=== PATIENT | female | born 1960 | race Caucasian/White ===

== ENCOUNTER 2018-07-23 14:45 | Emergency (ER) | payer BC ==
[~2018-07-23] VITALS: Ht 154.9 cm; Wt 66.7 kg
--- NOTE | 2018-07-23 15:03 | NUR ---
bib daughter from home for severe h/a, pt [id number], pt on monitor, vss, nad noted, pending md rivera
[2018-07-23] MEDS ORDERED: ONDANSETRON 4 MG TAB.RAPDIS PO ONE (15:30)
[2018-07-23 15:37] LABS: BASOPHILS % (AUTO) 0.3 % (0.0-2.0); HEMATOCRIT 44 % (33-45); HEMOGLOBIN 15.2 g/dL (11.5-14.8); LYMPHOCYTES % (AUTO) 6.7 % (20.0-44.0); MEAN CORPUSCULAR HGB CONC 34 g/dl (31.0-36.0); MEAN CORPUSCULAR VOLUME 89 fL (82-100); MONOCYTES # (AUTO) 0.5 /CMM (0.1-1.30); MONOCYTES % (AUTO) 3.5 % (2.0-12.0); NEUTROPHILS # (AUTO) 13.4 /CMM (1.8-8.9); NEUTROPHILS % (AUTO) 89.5 % (43.0-81.0); PLATELET COUNT (AUTO) 189 /CMM (150-450); RED BLOOD CELL COUNT(AUTO) 4.95 MIL/uL (4.0-5.2); WHITE BLOOD COUNT (AUTO) 14.9 K/uL (4.3-11.0)
[2018-07-23 15:47] LABS: CALCIUM, SERUM 9.2 mg/dL (8.5-10.1); CREATININE 0.8 mg/dL (0.6-1.3); POTASSIUM 3.6 mmol/L (3.5-5.1)
[2018-07-23] MEDS ORDERED: ONDANSETRON 4 MG TAB.RAPDIS ONE (15:56)
[2018-07-23] MEDS ORDERED: CT SWABBABLE VALVE TRANS SET 1 EA INFUS.SET MC ONE (16:02)
[2018-07-23] MEDS ORDERED: IV NS 0.9% 250 ML IV ONE (16:02)
[2018-07-23] MEDS ORDERED: IOHEXOL-350 100 ML VIAL IV ONE (16:02)
[2018-07-23] MEDS ORDERED: ACETAMINOPHEN 325 MG TABLET PO ONE (18:30)
[2018-07-23] MEDS ORDERED: ACETAMINOPHEN 325 MG TABLET ONE (18:31)
--- NOTE | 2018-07-23 19:14 | NUR ---
CALLED DR EDDY AT [phone]. I WAS UNABLE TO LEAVE A MESSAGE VOICEMAIL BOX WAS FULL.
--- NOTE | 2018-07-23 19:35 | NUR ---
CALLED DR EDDY AND TRANSERRED CALL TO DR LUO
[2018-07-23 20:13] LABS: APPEARANCE,URINE Clear (CLEAR); BILIRUBIN,URINE SMALL (NEGATIVE); BLOOD, URINE Small Ery/uL (NEGATIVE); COLOR,URINE Yellow (YELLOW); KETONES,URINE >=160 (NEGATIVE); LEUKOCYTE ESTERASE ,URINE Negative (NEGATIVE); NITRITE, URINE Negative (NEGATIVE); PROTEIN,URINE 30 mg/dl (NEGATIVE); UGLUCOSE Negative (NEGATIVE); UROBILINOGEN,URINE 0.2 EU/dL (0.2)
[2018-07-23 20:21] LABS: BACTERIA,URINE None seen /HPF (None Seen); SQUAMOUS EPITHELIAL CELL,UR Rare /HPF (None Seen); WBC,URINE NONE SEEN /HPF (0-3)
--- NOTE | 2018-07-23 21:10 | NUR ---
PT ASSIGNED TO ROOM [facility] AT [facility]. CALL-[phone]
--- NOTE | 2018-07-23 21:13 | NUR ---
CALL REPORT TO [phone]. BED [id number]
--- NOTE | 2018-07-23 21:23 | NUR ---
CALLED [facility]. ETA 60 MIN TRIP# [phone]
[2018-07-23] MEDS ORDERED: MORPHINE SULFATE INJ 2 MG/ML DISP.SYRIN IV ONE (21:30)
[2018-07-23] MEDS ORDERED: ONDANSETRON HCL/PF - ER 4 MG/2 ML VIAL IV ONE (21:30)
[2018-07-23] MEDS ORDERED: ONDANSETRON HCL/PF 4 MG/2 ML VIAL ONE (21:36)
[2018-07-23] MEDS ORDERED: MORPHINE SULFATE INJ 2 MG/ML DISP.SYRIN ONE (21:36)
[2018-07-23 22:09] VITALS: BP 100/53
--- NOTE | 2018-07-23 22:19 | NUR ---
report given to preston lyon for joshua at [facility]
--- NOTE | 2018-07-23 22:59 | NUR ---
pt left via private ambulance to [facility], via [facility] with 2 [employer] feed sales [employer], pt left in stable condition, all ppw given to ambulance staff, pt nad noted, vss, pending md rivera.
== END 2018-07-23 23:03 | disposition short-term general hospital (02) ==
LOC: ER 14:56
DX: I65.22 Occlusion and stenosis of left carotid artery (principal); I67.1 Cerebral aneurysm, nonruptured; B34.9 Viral infection, unspecified; Z60.2 Problems related to living alone; Z86.73 Personal history of transient ischemic attack (TIA), and cerebral infarction without residual deficits
CPT/HCPCS: 36415; 70450; 70496; 70498; 71045; 80048; 81001; 85025; 85730; 87040 ×2; 87086; 93005; 96374; 99285; J2270; J2405 ×2; J7050; Q0162; Q9967; 81000-TC

== ENCOUNTER 2022-12-01 11:05 | Emergency (ER) | payer BC ==
[~2022-12-01] VITALS: Ht 154.9 cm; Wt 65.3 kg
[2022-12-01] MEDS ORDERED: HYDROCODONE/APAP 5/325MG TABLET PO ONE (11:30)
[2022-12-01] MEDS ORDERED: CYCLOBENZAPRINE 10 MG TABLET PO ONE (11:30)
[2022-12-01] MEDS ORDERED: HYDROCODONE/APAP 5/325MG TABLET ONE (11:40)
[2022-12-01] MEDS ORDERED: CYCLOBENZAPRINE 10 MG TABLET ONE (11:41)
[2022-12-01] MEDS ORDERED: CYCL10TA9 PO (15:15)
[2022-12-01] MEDS ORDERED: HYDROCODONE/APAP 10/325MG TABLET PO ONE (15:30)
[2022-12-01] MEDS ORDERED: HYDROCODONE/APAP 10/325MG TABLET ONE (15:46)
[2022-12-01 16:05] VITALS: BP 136/84; TEMP 98.1; O2SAT 97
== END 2022-12-01 16:09 | disposition home or self-care (01) ==
LOC: ER 11:10
DX: S80.02XA Contusion of left knee, initial encounter (principal); S80.01XA Contusion of right knee, initial encounter; R07.89 Other chest pain; M79.632 Pain in left forearm; M79.631 Pain in right forearm; M54.50 Low back pain, unspecified; Z60.2 Problems related to living alone; V43.52XA Car driver injured in collision with other type car in traffic accident, initial encounter; Y93.89 Activity, other specified; Y92.89 Other specified places as the place of occurrence of the external cause; Y99.8 Other external cause status
CPT/HCPCS: 71045-TC; 72131-TC; 72170-TC; 73090-TC; 73564-TC; 73590-TC